=== PATIENT | male | born 1955 | race Caucasian/White ===

== ENCOUNTER 2016-08-05 08:00 | Outpatient (CLI) | payer MEDICARE | END 2016-08-05 23:59 | disposition home or self-care (01) | DX: D64.9 Anemia, unspecified (principal) ==

== ENCOUNTER 2016-08-05 08:00 | Outpatient (CLI) | payer MEDICARE | END 2016-08-05 23:59 | disposition home or self-care (01) | DX: Z79.899 Other long term (current) drug therapy (principal) ==

== ENCOUNTER 2017-04-26 14:23 | Outpatient (CLI) | payer MEDICARE ==
--- NOTE | 2017-04-27 10:12 | MRI Report ---
EXAM: LEFT SHOULDER MRI WITHOUT CONTRAST EXAM DATE: 04/26/2017 03:26 PM. CLINICAL HISTORY: Left shoulder pain for 8 months post workout. COMPARISON: None. TECHNIQUE: Multiplanar, multisequence T1-weighted and fluid-sensitive sequences of the shoulder witho ut contrast. Other: None. FINDINGS: Acromioclavicular Region: The acromion is type II. There is fluid in the acromioclavicular joint spac e. There is mild osteoarthritis of the acromioclavicular joint. No subacromial/subdeltoid bursal flui d. Glenohumeral Region: No subluxation. No effusion or loose bodies. The articular cartilage is unremark able. Bone Marrow: There are cysts in the anterior margin of the humeral head. Labrum: The labrum is unremarkable on this nonarthrographic study. Musculature/Rotator Cuff: The superior surface of supraspinatus is effaced by the acromioclavicular j oint and distal acromion. There is a 10 x 11 mm high-grade partial-thickness tear of the musculotendi nous junction of supraspinatus involving almost the entire tendon thickness. Infraspinatus appears un remarkable. There is mild tendinosis of the deep and superficial fibers of subscapularis anterior to the lesser tuberosity. There is no atrophy. Biceps Tendon: The long head of the biceps tendon and biceps rosa are intact. Other: The subcutaneous tissues are unremarkable. IMPRESSION: 1. Mild osteoarthritis of the acromioclavicular joint with a joint effusion. 2. High-grade partial-thickness tear of supraspinatus. 3. Tendinosis of the distal subscapularis tendon. 4. Glenohumeral joint and labrum appear unremarkable. [facility] MUSCULOSKE[facility] SECTION Referring Provider Line: [phone] SITE ID: [id number]
== END 2017-04-26 14:24 | disposition home or self-care (01) ==
LOC: DI 14:23
PROVIDERS: ATTEND Orthopaedic Surgery
DX: M75.100 Unspecified rotator cuff tear or rupture of unspecified shoulder, not specified as traumatic (principal); M19.012 Primary osteoarthritis, left shoulder; M75.82 Other shoulder lesions, left shoulder

== ENCOUNTER 2017-05-21 08:00 | Outpatient (CLI) | payer MEDICARE ==
[2017-05-21 17:57] LABS: BASOPHILS % (AUTO) 0.3 %; EOSINOPHILS # (AUTO) 0.1 10^3/uL (0.0-0.7); EOSINOPHILS % (AUTO) 0.9 %; HGB - HEMOGLOBIN 13.7 g/dL (14.0-18.0); LYMPHOCYTES % (AUTO) 30.4 %; MEAN CORPUSCULAR HGB CONC 32.4 g/dL (32.0-36.0); MEAN CORPUSCULAR VOLUME 86.2 fL (80.0-94.0); MEAN PLATELET VOLUME 8.8 fL (7.4-11.4); MONOCYTES # (AUTO) 0.6 10^3/uL (0.0-1.0); MONOCYTES % (AUTO) 6.4 %; PLT - PLATELET COUNT 299 10^3/uL (130-450); RED BLOOD COUNT 4.91 10^6/uL (4.70-6.10); RED CELL DISTRIBUTION WIDTH 14.4 % (12.0-15.0); WHITE BLOOD COUNT 9.7 x10^3/uL (4.8-10.8)
[2017-05-21 18:09] LABS: ALBUMIN 4.4 g/dL (3.2-5.5); ALBUMIN/GLOBULIN RATIO 1.2 (1.0-2.2); BILIRUBIN,TOTAL 0.9 mg/dL (0.2-1.0); CALCIUM 9.1 mg/dL (8.5-10.3); CREATININE 1.1 mg/dL (0.6-1.2); TOTAL PROTEIN 8.1 g/dL (6.7-8.2)
== END 2017-05-21 08:01 | disposition home or self-care (01) ==
LOC: LAB.F 08:00
PROVIDERS: ATTEND Physician Assistant Medical
DX: Z01.812 Encounter for preprocedural laboratory examination (principal); S46.002A Unspecified injury of muscle(s) and tendon(s) of the rotator cuff of left shoulder, initial encounter
CPT/HCPCS: 36415; 80053; 85025

== ENCOUNTER 2017-06-07 06:13 | Day surgery (SDC) | payer MEDICARE ==
[2017-06-07] MEDS ORDERED: LACTATED RINGERS 1,000 ML IV ONE ×2 (06:37→08:39)
[2017-06-07] MEDS ORDERED: SCOPOLAMINE PATCH TOP ONE (07:08)
[2017-06-07] MEDS ORDERED: BUPIVACAINE 0.25% PF 30 ML VIAL SUBQ ONE ×2 (08:22)
[2017-06-07] MEDS ORDERED: NEOSTIGMINE 1 MG/1 ML 10 ML MDV IVP ONE (08:28)
[2017-06-07] MEDS ORDERED: PROPOFOL 200 MG/20 ML VIAL IVP ONE (08:28)
[2017-06-07] MEDS ORDERED: ROPIVACAINE 0.5% PF 20 ML AMPULE EP ONE (08:28)
[2017-06-07] MEDS ORDERED: ROCURONIUM 50 MG/5 ML VIAL IVP ONE (08:28)
[2017-06-07] MEDS ORDERED: KETOROLAC 30 MG/ML VIAL IVP ONE (08:28)
[2017-06-07] MEDS ORDERED: fentaNYL 100 MCG/2 ML VIAL IVP ONE (08:28)
[2017-06-07] MEDS ORDERED: ePHEDrine 50 MG/ML AMP IVP ONE (08:28)
[2017-06-07] MEDS ORDERED: ONDANSETRON 4 MG/2 ML VIAL IVP ONE (08:28)
[2017-06-07] MEDS ORDERED: MIDAZOLAM 2 MG/2 ML VIAL IVP ONE (08:28)
[2017-06-07] MEDS ORDERED: ceFAZolin 1 GM VIAL IV ONE (08:28)
[2017-06-07] MEDS ORDERED: GLYCOPYRROLATE 1 MG/5 ML VIAL IVP ONE (08:28)
[2017-06-07] MEDS ORDERED: DEXAMETHASONE 4 MG/ML VIAL IVP ONE (08:28)
[2017-06-07 12:03] VITALS: BP 118/84
--- NOTE | 2017-06-08 13:52 | OPERATIVE REPORT ---
DATE OF SERVICE: 06/07/2017 Physician: David Peña MD PREOPERATIVE DIAGNOSIS 1. Left shoulder rotator cuff tear. 2. 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 POSTOPERATIVE DIAGNOSIS 1. Left shoulder supraspinatus tendon tear. 2. Acromioclavicular joint arthritis with impingement. PROCEDURE PERFORMED 1. Left shoulder limited open repair of supraspinatus tendon with acromioplasty. 2. Left shoulder John procedure. INDICATIONS: This man has suffered several months of severe pain about the shoulder after onset with weightlifting. MRI scan showed a tear in the supraspinatus tendon with some minimal retraction. There was also in the coronal plane evidence for impingement of the AC joint on the tendon, especially if it was drawn straight. SURGEON: David Peña MD ANESTHESIA: Left shoulder distal scalene regional block and general anesthesia. IMPLANTS: Two suture anchors - G2 quick anchors. PROCEDURE: The patient was brought into the operating room after placement of a regional block in the preoperative area. He was placed in semi beach chair position. Left upper extremity was prepped and sterilely draped in usual fashion. Timeout was held to identify patient, site and procedure. A needle was then utilized to help outline the position of the clavicle, the acromion, and the AC joint. Attention was directed initially to the John portion of the procedure. A straight incision was made just superior to the distal clavicle, coming down a few millimeters beyond the AC joint. This was carried through a surprisingly thick layer of adipose tissue. The periosteum was easily elevated with its attachment of the trapezius muscle and deltoid elevated by pushing anterior and posterior. It was possible then to measure carefully a resection of 15 mm. The periosteum was lifted off the bone around this area. A small oscillating saw was then utilized to perform the osteotomy. The distal fragment was then elevated off the more distal periosteum and joint capsule and removed. He had an irregular inner surface where the cartilage was rubbed off the bone in places. There was definitely an enlargement which had been pushing inferiorly. A file could be gotten under the acromion and was utilized with a pulling motion to remove the small osteophyte. Wound was irrigated with normal saline. The deep layer was closed with 2-0 PDS, interrupted [id number] sutures. The subcutaneous tissue was closed with some 3-0 simple inverted PDS sutures. At the end of the procedure, the skin was finally closed, with 3-0 PDS running subcuticular stitch. At all levels, the wound was irrigated with normal saline before closure of that plane. Attention was directed towards the anterolateral tip of the acromion. This was located with a needle. Some subcutaneous Marcaine was placed. A longitudinal "saber" incision was created. This was about 3 cm long. There was spreading to this subcutaneous fat down to the muscle fascia. The muscle and its fascia were then divided longitudinally spreading the fibers of the muscle with very little cut directly at the acromion. This opening was continued up to the acromion and down about 2 cm distally. Placement of retractors in this opening allowed a good view of the rotator cuff after excision of some small area of thickened bursa. Rotator cuff was in excellent condition throughout its extent with the exception of the supraspinatus tendon. It seemed there was still some of this tendon in place posteriorly which had helped hold the main tendon to about 15 mm retraction. It was possible to grasp this tendon with an Allis clamp and pull it distally. Attention was directed to the acromion. A 3/8 inch osteotome was then utilized to cut the undersurface of the acromion back from its tip both straight posteriorly and posteromedially. The acromioclavicular ligament was left in place. Normal saline was used to wash the wound at intervals. Hemostasis was obtained with electrocautery. The soft tissue and thin cortex over the anterior portion of the greater tuberosity at the junction with the humeral head was removed with a large rongeur. A small groove was created. The suture anchors were then placed. There were 2 of them. One limb of each suture was then woven into the distal portion of the supraspinatus tendon using a 3 locking suture technique. Once both of these sutures have been placed, the anterior and then the posterior one, it was possible to pull these both sutures together and bring the distal end of the tendon down to the area of decorticated bone. A few millimeters of the distal portion of the tendon were excised sharply to create a fresh edge. The anterior suture was then snugged up and tied carefully. The posterior suture was treated the same. The supraspinatus tendon came nicely down over the decorticated area. The suture anchors had been placed about 5 mm distal to the decorticated bone. It was possible, then to move the shoulder through range of motion, watching the rotator cuff. There was no tendency for the tendon to pull away from its attachment. Wound was irrigated with normal saline. A 2-0 PDS sfbyyv-vu-zjwpd type suture was then placed in the deep fascia of the muscle and joining this superficially to the fascia overlying the acromion. When this was snugged up, the groove in the deltoid was closed nicely and there was not a palpable proximally. Distally, an additional dmpmit-tq-jgqop suture was placed, closing the inner fascia. The wound was irrigated again. Some subcutaneous 3-0 PDS sutures were used to close first the superficial fascia of the deltoid and then the subcutaneous layer. The skin was closed with a running 3-0 Prolene subcuticular stitch. This was supported by Steri-Strips as was the John incision. A sterile occlusive dressing was applied. The patient was then awakened, extubated, and taken to the recovery room in good condition, having tolerated the procedure well. ESTIMATED BLOOD LOSS: Less than 100 mL Most of this came from the AC joint area. TD: 06/08/2017 14:51
== END 2017-06-07 06:14 | disposition home or self-care (01) ==
LOC: SDS 06:13
PROVIDERS: ATTEND Orthopaedic Surgery
PROC: 0LQ20ZZ Repair Left Shoulder Tendon, Open Approach (ICD-10-PCS; 2017-06-07)
PROC: 0PBB0ZZ Excision of Left Clavicle, Open Approach (ICD-10-PCS; principal; 2017-06-07 07:30)
DX: S46.012A Strain of muscle(s) and tendon(s) of the rotator cuff of left shoulder, initial encounter (principal); M75.42 Impingement syndrome of left shoulder; M19.012 Primary osteoarthritis, left shoulder
CPT/HCPCS: 23120; 23410; C1713; J3490; J7120

== ENCOUNTER 2018-07-05 09:17 | Outpatient (CLI) | payer MEDICARE ==
--- NOTE | 2018-07-05 13:02 | XRAY Report ---
Reason: PREPATELLAR BURSITIS OF LT KNEE Procedure Date: 07/05/2018 Accession Number: [id number] / [id number] Procedure: XR - Knee 2 View LT CPT Code: FULL RESULT: EXAM: LEFT KNEE RADIOGRAPHY EXAM DATE: 07/05/2018 09:27 AM. CLINICAL HISTORY: PREPATELLAR BURSITIS OF LT KNEE. COMPARISON: KNEE 4 VIEW RT 10/09/2013 4:24 PM. TECHNIQUE: 2 views. FINDINGS: Bones: Normal. No fractures or bone lesions. Joints: Mild joint space narrowing, predominantly in the lateral weightbearing compartment. No joint effusion. Tendinopathy at the tibial insertion of the patellar tendon. Soft Tissues: Soft tissue swelling at the site of tendinopathy. IMPRESSION: Radiographic supportive of tendinopathy at the tibial insertion of the patellar tendon. [facility]
== END 2018-07-05 09:18 | disposition home or self-care (01) ==
LOC: DI 09:17
PROVIDERS: ATTEND Internal Medicine
DX: M67.962 Unspecified disorder of synovium and tendon, left lower leg (principal)

== ENCOUNTER 2020-03-21 13:24 | Outpatient (CLI) | payer MEDICARE ==
[2020-03-21 20:11] LABS: BASOPHILS % (AUTO) 0.2 %; EOSINOPHILS # (AUTO) 0.1 10^3/uL (0.0-0.7); EOSINOPHILS % (AUTO) 0.9 %; HGB - HEMOGLOBIN 13.5 g/dL (14.0-18.0); LYMPHOCYTES # (AUTO) 2.3 10^3/uL (1.5-3.5); LYMPHOCYTES % (AUTO) 26.7 %; MEAN CORPUSCULAR HEMOGLOBIN 27.4 pg (27.0-31.0); MEAN CORPUSCULAR HGB CONC 31.2 g/dL (32.0-36.0); MEAN CORPUSCULAR VOLUME 87.8 fL (80.0-94.0); MEAN PLATELET VOLUME 11.3 fL (7.4-11.4); MONOCYTES # (AUTO) 0.5 10^3/uL (0.0-1.0); NEUTROPHILS # (AUTO) 5.7 10^3/uL (1.5-6.6); NEUTROPHILS % (AUTO) 65.9 %; PLT - PLATELET COUNT 227 10^3/uL (130-450); RED BLOOD COUNT 4.93 10^6/uL (4.70-6.10); RED CELL DISTRIBUTION WIDTH 14.1 % (12.0-15.0); WHITE BLOOD COUNT 8.7 x10^3/uL (4.8-10.8)
[2020-03-21 20:23] LABS: ALBUMIN 4.5 g/dL (3.2-5.5); ALBUMIN/GLOBULIN RATIO 1.3 (1.0-2.2); BILIRUBIN,TOTAL 0.9 mg/dL (0.2-1.0); CALCIUM 9.5 mg/dL (8.5-10.3); CREATININE 1.5 mg/dL (0.6-1.2); TOTAL PROTEIN 7.9 g/dL (6.7-8.2)
== END 2020-03-21 13:25 | disposition home or self-care (01) ==
LOC: LAB.S 13:24
PROVIDERS: ATTEND Psychiatry & Neurology Psychiatry
DX: F32.3 Major depressive disorder, single episode, severe with psychotic features (principal)
CPT/HCPCS: 36415; 80053; 84443; 85025

== ENCOUNTER 2020-06-26 14:14 | Outpatient (CLI) | payer MEDICARE ==
--- NOTE | 2020-06-27 15:25 | Ultrasound Report ---
PROCEDURE: Testicle INDICATIONS: SCROTAL MASS TECHNIQUE: Real-time scanning was performed of the scrotum and testicles, with image documentation. Color and p ulse Doppler interrogation was performed of both testicles. COMPARISON: None. FINDINGS: Right: Testicle is normal in size at 5.3 x 3.2 x 3.7 cm, and homogenous in echotexture. Epididymis is normal in overall size and morphology. Large simple appearing right hydrocele. No varicoceles. O verlying scrotal skin is mildly thickened. Incidental note of a 0.2 cm scrotal marya. Left: Testicle is normal in size at 4.6 x 2.8 x 3.0 cm, and homogeneous in echotexture. Epididymis is normal in overall size and morphology. No varicoceles. Small hydrocele. Overlying scrotal skin i s mildly thickened. Doppler: Color and pulse Doppler demonstrate normal and symmetric arterial flow in both testicles. IMPRESSION: Unremarkable sonographic appearance of the bilateral testicles. Large right and small left simple appearing hydroceles with overlying scrotal skin thickening. Reviewed by: Josef Palafox MD on 06/27/2020 3:24 PM PST Approved by: Josef Palafox MD on 06/27/2020 3:24 PM PST Station ID: [id number]
== END 2020-06-26 14:15 | disposition home or self-care (01) ==
LOC: DI 14:14
PROVIDERS: ATTEND Physician Assistant Medical
DX: N43.3 Hydrocele, unspecified (principal)

== ENCOUNTER 2020-08-08 09:22 | Day surgery (SDC) | payer MEDICARE ==
[2020-08-08] MEDS ORDERED: LACTATED RINGERS 1,000 ML IV ONE ×2 (09:58→11:36)
[2020-08-08] MEDS ORDERED: MIDAZOLAM 2 MG/2 ML VIAL ONE ×3 (11:14→11:30)
[2020-08-08] MEDS ORDERED: fentaNYL 250 MCG/5 ML VIAL ONE (11:14)
[2020-08-08] MEDS ORDERED: ONDANSETRON 4 MG/2 ML VIAL ONE (11:32)
[2020-08-08 11:46] VITALS: BP 103/65
== END 2020-08-08 09:23 | disposition home or self-care (01) ==
LOC: SDS 09:22
PROVIDERS: ATTEND Surgery
PROC: 0DBL8ZZ Excision of Transverse Colon, Via Natural or Artificial Opening Endoscopic (ICD-10-PCS; 2020-08-08)
PROC: 0DBK8ZZ Excision of Ascending Colon, Via Natural or Artificial Opening Endoscopic (ICD-10-PCS; principal; 2020-08-08 10:30)
DX: Z12.11 Encounter for screening for malignant neoplasm of colon (principal); D12.2 Benign neoplasm of ascending colon; D12.3 Benign neoplasm of transverse colon; E78.5 Hyperlipidemia, unspecified; F32.9 Major depressive disorder, single episode, unspecified; F41.9 Anxiety disorder, unspecified
CPT/HCPCS: 45380; J3010; J7120

== ENCOUNTER 2020-12-31 18:28 | Outpatient (CLI) | payer MEDICARE | END 2020-12-31 18:29 | disposition home or self-care (01) | LOC: COV 18:28 | PROVIDERS: ATTEND Family Medicine | DX: Z20.822 Contact with and (suspected) exposure to COVID-19 (principal) ==

== ENCOUNTER 2021-10-23 08:00 | Outpatient (CLI) | payer MEDICARE ==
--- NOTE | 2021-10-23 16:22 | XRAY Report ---
PROCEDURE: Knee 3 View RT INDICATIONS: RIGHT KNEE PAIN TECHNIQUE: 3 views of the right knee(s) were acquired. COMPARISON: None. FINDINGS: Bones: No fractures or dislocations mild joint space loss and marginal spurring, most extensive in t he patellofemoral compartment. Corticated fragmentation of the anterior tibial tubercle. Slight irwin la corinne. No suspicious bony lesions. Soft tissues: No joint effusion. No suspicious soft tissue calcifications. Thickening over the joseph llar tendon region. Mild vascular calcifications. IMPRESSION: 1. Tricompartment degeneration. 2. Probable remote [place] Schlatter disease. 3. No significant joint effusion. 4. Probably chronic patellar tendon thickening. Reviewed by: Megan Jack MD on 10/23/2021 4:21 PM PDT Approved by: Megan Jack MD on 10/23/2021 4:21 PM PDT Station ID: [id number]
== END 2021-10-23 23:59 | disposition home or self-care (01) ==
LOC: DI.S 08:00
PROVIDERS: ATTEND Registered Nurse
DX: M17.11 Unilateral primary osteoarthritis, right knee (principal)

== ENCOUNTER 2023-03-26 09:29 | Outpatient (CLI) | payer MEDICARE ==
--- NOTE | 2023-03-26 10:32 | MRI Report ---
PROCEDURE: KNEE WO - LT INDICATIONS: LEFT KNEE PAIN TECHNIQUE: Noncontrast sagittal PD fast spin echo and T2 fast spin echo with fat saturation, sagittal 3-D gradie nt sequence with fat saturation; coronal T1 spin echo and PD fast spin echo with fat saturation, and axial PD fast spin echo with fat saturation through the knee. COMPARISON: None. FINDINGS: Image quality: Excellent. Menisci: Medial extrusion of the medial meniscus is present. There is linear oblique and horizontal h igh T2 signal intensity within the inner, middle, peripheral thirds of the medial meniscal body and p osterior horn, demonstrating superior and inferior articular surface extension, indicating complex te aring. Lateral meniscus is intact. Cruciate ligaments: The anterior and posterior cruciate ligaments appear intact. Medial structures: There is partial thickness tearing of the anterior fibers of the medial collateral ligament at the femoral origin and within its midportion. Mild T2 signal elevation within the semime mbranous tendon at the tibial insertion site. Visualized portions of the pes anserinus tendons appear normal. No abnormal bursal fluid. Lateral structures: The lateral collateral ligament, long and short heads of the biceps femoris tend on appear intact. The popliteus tendon appears normal. Iliotibial band appears normal. Anterior structures: There is mild T2 signal elevation within the quadriceps and patellar tendons at the patellar and tibial insertion sites. Small focus of fluid signal intensity within the patellar te ndon at the tibial insertion site. Lateral patellar subluxation is present. Lateral ventral trochlear prominence is present. Mild edema within the superolateral aspect of the infrapatellar fat pad. Bones and cartilage: No bone marrow contusions or fractures. Chronic appearing fragmentation of the anterior tibial tubercle. There is mild tricompartmental periarticular osteophyte formation. Mild art icular cartilage loss diffusely overlies the weightbearing aspects of the medial femoral condyle and medial tibial plateau. Severe articular cartilage loss overlies the lateral femoral trochlea and late ral patellar facet. Joint space: There is a small knee joint effusion and a small Ramírez's cyst. Normal appearing synovi al plicae are incidentally noted. IMPRESSION: 1. Complex tearing of the medial meniscus. 2. Tricompartmental osteoarthritis with associated articular cartilage loss. 3. Partial-thickness medial collateral ligament tear. 4. Quadriceps and patellar tendinopathy with superimposed low-grade tearing of the patellar tendon. C hronic [place]-Schlatter disease sequelae. 5. Knee joint effusion and Ramírez's cyst. 6. Insertional tendinitis of the semimembranosus. Reviewed by: Jak Hernandez MD on 03/26/2023 10:31 AM [facility] Approved by: Jak Hernandez MD on 03/26/2023 10:31 AM PST Station ID: [id number]
== END 2023-03-26 09:30 | disposition home or self-care (01) ==
LOC: DI 09:29
PROVIDERS: ATTEND Internal Medicine
DX: S83.232A Complex tear of medial meniscus, current injury, left knee, initial encounter (principal); M17.12 Unilateral primary osteoarthritis, left knee; S83.412A Sprain of medial collateral ligament of left knee, initial encounter; S76.112A Strain of left quadriceps muscle, fascia and tendon, initial encounter; M92.522 Juvenile osteochondrosis of tibia tubercle, left leg; M25.462 Effusion, left knee; M71.22 Synovial cyst of popliteal space [Baker], left knee

== ENCOUNTER 2023-06-03 14:25 | Outpatient (CLI) | payer MEDICARE ==
--- NOTE | 2023-06-03 17:17 | XRAY Report ---
PROCEDURE: Shoulder 3 View RT INDICATIONS: RIGHT SHOULDER PAIN TECHNIQUE: 3 views of the shoulder were acquired. COMPARISON: None. FINDINGS: Bones: No fractures or dislocations. Narrowing of the acromiohumeral interval with cystic changes in the superolateral aspect of the humeral head. Mild glenohumeral joint space narrowing with inferior osteophytosis. Mild acromioclavicular joint space narrowing and juxta-articular osteophytosis. Normal coracoclavicular interval. No suspicious bony lesions. Visualized ribs appear intact. Soft tissues: No suspicious soft tissue calcifications. The visualized lungs are within normal limi ts. IMPRESSION: 1.No acute bony abnormality. 2.Narrowing of the acromiohumeral interval with cystic changes in the humeral head which may be secon dylan to rotator cuff pathology. An MRI can be performed for further evaluation, at clinical discretio n. 3.Mild glenohumeral and acromioclavicular joint osteoarthritis. Reviewed by: Kaylen Marks MD on 06/03/2023 5:15 PM PST Approved by: Kaylen Marks MD on 06/03/2023 5:15 PM PST Station ID: [id number]
== END 2023-06-03 23:59 | disposition home or self-care (01) ==
LOC: DI.WOS 14:25
PROVIDERS: ATTEND Physician Assistant Surgical
DX: M75.101 Unspecified rotator cuff tear or rupture of right shoulder, not specified as traumatic (principal); M19.011 Primary osteoarthritis, right shoulder